=== PATIENT | male | born 1950 | race Two or more races ===

== ENCOUNTER 2025-02-27 15:03 | Emergency (ER) | payer MEDICAID ==
[~2025-02-27] VITALS: Ht 162.6 cm; Wt 94.0 kg
[2025-02-27 15:17] VITALS: TEMP 98.1
[2025-02-27 15:44] LABS: PLATELET COUNT (AUTO) 241 K/uL (150-450); RED BLOOD CELL COUNT(AUTO) 4.86 MIL/uL (4.50-5.90); RED CELL DISTRIBUTION WIDTH 14.0 % (11.5-14.5); WHITE BLOOD COUNT (AUTO) 7.3 K/uL (4.5-11.0)
[2025-02-27 15:45] VITALS: BP 138/79; PULSE 77; RESP 16; O2SAT 97
[2025-02-27 15:52] LABS: CALCIUM, TOTAL 9.0 mg/dL (8.8-10.5); CREATININE 1.25 mg/dL (0.60-1.30); GLOMERULAR FILTR. RATE CALC 56 mL/min (>60); GLUCOSE,RANDOM 130 mg/dL (70-110); SODIUM SERUM 142 mmol/L (136-145); UREA NITROGEN, BLOOD 24 mg/dL (7-18)
[2025-02-27 16:03] LABS: TROPONIN I-HIGH SENSITIVITY 7 ng/L (<76)
== END 2025-02-27 16:55 | disposition home or self-care (01) ==
LOC: EMS 15:03
DX: R55 Syncope and collapse (principal); R42 Dizziness and giddiness; R23.2 Flushing; R06.02 Shortness of breath
CPT/HCPCS: 80048; 83880; 84484; 85025; 93005; 99284